=== PATIENT | female | born 1960 | race Two or more races ===

== ENCOUNTER 2025-05-17 18:34 | Emergency (ER) | payer OTHER ==
[~2025-05-17] VITALS: Ht 154.9 cm; Wt 63.6 kg
[2025-05-17 18:37] VITALS: BP 155/95; PULSE 87; RESP 16; TEMP 98.2; O2SAT 98
--- NOTE | 2025-05-17 19:32 | DVH ---
CLINICAL INDICATION: right 3rd toe pain Right foot were obtained. Comparison: None FINDINGS/IMPRESSION: Displaced oblique fracture proximal phalanx right 3rd toe. Arthritic changes metatarsal phalangeal joint right great toe
[2025-05-17] MEDS ORDERED: ACET500T58 PO (21:00)
--- NOTE | 2025-05-17 21:00 | ED.PDOC ---
Musculoskeletal HPI Comments 64-year-old female presents to ER with complaints of right 3rd toe pain x 1 day. Patient states that she has been experiencing 8/10 pain with associated swelling and numbness to right 3rd toe s/p accidentally hitting this toe against a brick at 6:30 p.m. prior to arrival to ER. Denies use of medications for current symp toms and states she has not been able to bear weight on right leg due to right 3rd toe pain. Patient endorses no further symptoms/complaints Chief Complaint: Lower Extremity Time Seen by MD: 18:54 Primary Care Provider: ANALI Reviewed Notes: Nurses Notes, Medications, Allergies Allergies: Coded Allergies: Penicillins (Verified Allergy, Unknown, 05/17/25) Home Meds Active Scripts Acetaminophen (Acetaminophen) 500 Mg Tab, 500 MG PO Q4HPRN, #30 TAB 0 Refills Prov:RAOUL BROWER 05/17/25 Information Source: Patient Mode of Arrival: Wheelchair Past Medical History PAST MEDICAL HISTORY: Denies Surgical History: Denies all surgeries Family History Family History: Unknown Social History Smoker: Non-Smoker Alcohol: Denies ETOH Use Drugs: Denies Drug Use Lives In: Home Constitutional: denies: chills, diaphoresis, fatigue, fever, malaise, sweats, weakness, others EENTM: denies: blurred vision, double vision, ear bleeding, ear discharge, ear drainage, ear pain, ear ringing, eye pain, eye redness, hearing loss, mouth pain, mouth swelling, nasal discharge, nose bleeding, nose congestion, nose pain, photophobia, tearing, throat pain, throat swelling, voice changes, others Respiratory: denies: cough, hemoptysis, orthopnea, SOB at rest, shortness of breath, SOB with excertion, stridor, wheezing, others Cardiovascular: denies: chest pain, dizzy spells, diaphoresis, Dyspnea on exertion, edema, irregular heart beat, left arm pain, lightheadedness, palpitations, PND, syncope, others Gastrointestinal: denies: abdomen distended, abdominal pain, blood streaked bowels, constipated, diarrhea, dysphagia, difficulty swallowing, hematemesis, melena, nausea, poor appetite, poor fluid intake, rectal bleeding, rectal pain, vomiting, others Genitourinary: denies: burning, dysuria, flank pain, frequency, hematuria, incontinence, penile discharge, penile sore, pain, testicle pain, testicle swelling, urgency, others Neurological: reports: others (As stated in HPI) Musculoskeletal: reports: others (As stated in HPI) Integumetry: reports: others (As stated in HPI) Allergic/Immunocompromised: denies: Difficulty Healing, Frequent Infections, Hives, Itching, others Hematologic/Lymphatic: denies: anemia, blood clots, easy bleeding, easy bruising, swollen glands, others Endocrine: denies: excessive hunger, excessive sweating, excessive thirst, excessive urination, flushing, intolerance to cold, intolerance to heat, unexplained weight gain, unexplained weight loss, others Psychiatric: denies: anxiety, bipolar disorder, depression, hopeless, panic disorder, schizophrenia, sleepless, suicidal, others Physical Exam General Appearance: No Apparent Distress HEENT: PERRL/EOMI Neck: Full Range of Motion, Non-Tender, Normal Respiratory: Chest Non-Tender, Lungs Clear, No Accessory Muscle Use, No Respiratory Distress, Normal Breath Sounds Cardiovascular: No Murmur, No Gallop, Regular Rate/Rhythm Breast Exam: Deferred Gastrointestinal: NOT DONE Genitalia: Deferred Pelvic: Deferred Rectal: Deferred Extremities: Normal capillary refill, Normal range of motion Musculoskeletal : Extremity Location: Toe 3 (TTP/mild swelling noted to right 3rd toe. No nailbed injury/further skin changed noted. Patient able to move all toes of right foot. Pulses intact. Patient able to bear minimal weight on right leg due to right 3rd toe pain) Neurologic: Alert, No Motor Deficits, Normal Affect, Normal Mood, No Sensory Deficits Cerebellar Function: Normal Reflexes: Normal Skin: Dry, Normal Color, Warm Peripheral Pulses: 2+ dorsalis pedis (R), 2+ dorsalis pedis (L), 2+ Radial (R), 2+ Radial (L), 2+ Brachial (R), 2+ Brachial (L) Lymphatic: No Adenopathy Was a procedure done? Was a procedure done?: No Sedation Sedation?: No Differential Diagnosis EXT Differential Diagnosis: Dislocation, Laceration, Neurovascular injury X-Ray, Labs, Meds, VS Vital Signs Date Time Temp Pulse Resp B/P (MAP) Pulse Ox O2 Delivery O2 Flow Rate FiO2 05/17/ 18:37 98.2 87 16 155/95 98 98.2 PATIENT: ORLANDO JACKSONCCT: [id number]: [id number] : 1960 LOC: ER ROOM / BED: / AGE / SEX: 64 / M ADM STATUS: REG ER SERVICE 53 ORDERING PHYSICIAN: RAOUL BROWER PROCEDURE(s): RFOOT - R FOOT 3 VIEW XRAY REASON: right 3rd toe pain ORDER NUMBER(s): [id number], ACCESSION NUMBER(s): [id number] CLINICAL INDICATION: right 3rd toe pain Right foot were obtained. Comparison: None FINDINGS/IMPRESSION: Displaced oblique fracture proximal phalanx right 3rd toe. Arthritic changes metatarsal phalangeal joint right great toe ATED BY: VINNIE TROTTER Jr., DO DICTATED DATE/TIME: 05/17/251928 SIGNED BY: VINNIE TROTTER Jr., SIGNED DATE/TIME: 05/17/251928 CC: Right foot x-ray reviewed Jose Martin tape and hard sole shoe applied Crutches ordered, patient educated on proper use. Was advised to use at all times Advised on elevation and alternate and alternate ice on/off as needed for pain/swelling Patient neurovascularly intact Advised to follow up with PCP and corporate safety coordinator in 1-2 days Patient verbalized understanding and agreeable with current plan of care Advised to return to ER immediately if symptoms worsen Images Reviewed?: Images reviewed and evaluated by me Time of 1ST Reevaluation: 20:34 Reevaluation 1ST: N/A Patient Education/Counseling: Diagnosis, Treatment, Prognosis, Need For Follow Up Family Education/Counseling: No Family Present Departure 1 Departure Time of Disposition: 20:58 Impression: Primary Impression: Toe fracture, right Qualified Codes: S92.501A - Displaced unspecified fracture of right lesser toe(s), initial encounter for closed fracture Disposition: HOME / SELF CARE / HOMELESS Condition: Stable e-Prescriptions Acetaminophen (Acetaminophen) 500 Mg Tab 500 MG PO Q4HPRN, #30 TAB 0 Refills Prov: RAOUL BROWER 05/17/25 Discharged With: Friend Critical Care Note Critical Care Time?: No Stability Stability form required: No Heart Score Heart Score: Heart Score Response (Comments) Value History N/A 0 EKG N/A 0 Age N/A 0 Risk Factors N/A 0 Troponin N/A 0 Total 0 RAOUL BROWER May 17, 2025 21:00
== END 2025-05-17 22:38 | disposition home or self-care (01) ==
LOC: EDSEX 18:34 → ER 18:34
DX: S92.511A Displaced fracture of proximal phalanx of right lesser toe(s), initial encounter for closed fracture (principal); Z88.0 Allergy status to penicillin; Z79.899 Other long term (current) drug therapy; W22.8XXA Striking against or struck by other objects, initial encounter; Y93.89 Activity, other specified; Y92.89 Other specified places as the place of occurrence of the external cause; Y99.8 Other external cause status
CPT/HCPCS: 73630